=== PATIENT | female | born 1955 | race Caucasian/White ===

== ENCOUNTER 2018-06-29 10:01 | Outpatient (CLI) | payer OTHER ==
--- NOTE | 2018-07-15 16:23 | MMO ---
BILATERAL MAMMOGRAMS: 07/15/18 HISTORY: Screening mammography. COMPARISON: Multiple exams back to 04/06/14. FINDINGS: Scattered fibroglandular densities. No dominant mass or suspicious calcifications. Study was evaluate d with the assistance of computer aided detection. IMPRESSION: BIRADS 1: Negative Routine annual screening mammography (for women over age 40) POS: [facility]
== END 2018-06-29 10:02 | disposition home or self-care (01) ==
LOC: SCSMAMMO 10:01
PROVIDERS: ATTEND Family Medicine
DX: Z12.31 Encounter for screening mammogram for malignant neoplasm of breast (principal)
CPT/HCPCS: 77067

== ENCOUNTER 2021-10-23 13:00 | Observation (INO) | payer MEDICARE ==
[2021-10-23 16:10] VITALS: BMI 34.8
[2021-10-23] MEDS ORDERED: Sodium Chloride 0.9% 1,000 ML IV SCH (17:45)
[2021-10-23 18:01] LABS: #Basophils 0.1 thou/uL (0.0-0.2); #Eosinphils 0.3 thou/uL (0.0-0.7); #Monocytes 0.8 thou/uL (0.11-0.59); #Neutrophils 4.1 thou/uL (1.40-6.50); %Basophils 0.9 % (0.0-1.0); %Eosinophils 4.1 % (0.0-10.0); %Lymphocytes 27.7 % (21.0-51.0); %Monocytes 10.7 % (0.0-10.0); %Neutrophils 56.6 % (42.0-75.0); Hemoglobin 14.8 g/dL (12.0-16.0); Mean Corpuscular HGB CONC 33.1 g/dL (32.0-36.0); Mean Corpuscular Hemoglobin 32.1 pg (27.0-31.0); Mean Corpuscular Volume 97.2 fL (78.0-98.0); Mean Platelet Volume 6.9 fL (7.4-10.4); Platelet Count 261 thou/uL (130-400); RBC Distribution Width 11.8 % (11.5-14.5); Red Blood Cell (RBC) Count 4.61 mill/uL (4.20-5.40); White Blood Cell (WBC) Count 7.2 thou/uL (4.8-10.8)
[2021-10-23 18:26] LABS: Anion Gap 22 mmol/L (10-20); BUN (Urea Nitrogen) 17 mg/dL (9.8-20.1); Calc. Creatinine Clearance 96 mL/min (70-130); Calcium 9.7 mg/dL (7.8-10.44); Carbon Dioxide 18 mmol/L (23-31); Chloride 104 mmol/L (98-107); Glucose 91 mg/dL (80-115); Potassium 3.7 mmol/L (3.5-5.1); Sodium 140 mmol/L (136-145)
[2021-10-23] MEDS ORDERED: Rosuvastatin 10 MG TAB PO SCH (21:00)
[2021-10-24 00:13] LABS: SARS-CoV-2 PCR by NAA Not Detected (NotDetected)
[2021-10-24] MEDS ORDERED: Levothyroxine Sodium 88 MCG TAB PO SCH (06:00)
[2021-10-24] MEDS ORDERED: Vancomycin 1 GM/200 ML BAG ONE (06:54)
[2021-10-24] MEDS ORDERED: Gentamicin 80 MG/2 ML VIAL ONE (07:00)
[2021-10-24] MEDS ORDERED: Vancomycin HCl 500 MG VIAL ONE (07:00)
[2021-10-24] MEDS ORDERED: Clindamycin/D5W 600 mg/50 ml Premix Bag ONE (07:43)
[2021-10-24] MEDS ORDERED: Iopamidol 370 76% 50 ML VIAL FS ONE (08:50)
[2021-10-24] MEDS ORDERED: Escitalopram Oxalate 20 mg Tablet PO SCH (09:00)
[2021-10-24] MEDS ORDERED: Aspirin Chewable 81 MG TAB PO SCH (09:00)
[2021-10-24] MEDS ORDERED: Lisinopril/Hydrochlorothiazide 20 mg/12.5 mg Tablet PO SCH (09:00)
[2021-10-24] MEDS ORDERED: Levofloxacin 500 mg/D5W 100 ml Premix Bag ONE (11:17)
[2021-10-24] MEDS ORDERED: Atropine Sulfate 1 mg/1 ml Vial ONE (11:55)
[2021-10-24] MEDS ORDERED: Atropine Sulfate 1 mg/10 ml Syringe ONE (11:58)
[2021-10-24] MEDS ORDERED: Fentanyl 250 MCG/5 ML VIAL ONE (12:07)
[2021-10-24] MEDS ORDERED: Midazolam HCl 2 mg/2 ml Vial ONE (12:07)
[2021-10-24] MEDS ORDERED: Lidocaine 1% (PF) 30 ML VIAL ONE (12:19)
[2021-10-24] MEDS ORDERED: Ondansetron PF 4 MG/2 ML Vial ONE (13:04)
[2021-10-24] MEDS ORDERED: Sodium Chloride 0.9% 1,000 ML IV SCH (13:30)
[2021-10-24] MEDS ORDERED: Acetaminophen 325 MG TAB PO PRN (13:49)
[2021-10-24] MEDS ORDERED: Cephalexin 250 MG CAP PO SCH (15:00)
[2021-10-24 16:05] VITALS: BP 111/59; TEMP 97.6
== END 2021-10-24 19:04 | disposition home or self-care (01) ==
LOC: 2NO 13:03 → INTOOBSV 13:03
PROVIDERS: ADMIT Internal Medicine Cardiovascular Disease; ATTEND Internal Medicine Cardiovascular Disease
PROC: 0JH606Z Insertion of Pacemaker, Dual Chamber into Chest Subcutaneous Tissue and Fascia, Open Approach (ICD-10-PCS; principal; 2021-10-24)
PROC: 02H63JZ Insertion of Pacemaker Lead into Right Atrium, Percutaneous Approach (ICD-10-PCS; 2021-10-24)
PROC: 02HK3JZ Insertion of Pacemaker Lead into Right Ventricle, Percutaneous Approach (ICD-10-PCS; 2021-10-24)
DX: I44.2 Atrioventricular block, complete (principal); I49.3 Ventricular premature depolarization; I47.1 Supraventricular tachycardia; I10 Essential (primary) hypertension; E78.2 Mixed hyperlipidemia; F17.290 Nicotine dependence, other tobacco product, uncomplicated; E03.9 Hypothyroidism, unspecified; Z79.82 Long term (current) use of aspirin; Z79.899 Other long term (current) drug therapy; Z88.0 Allergy status to penicillin; Z91.040 Latex allergy status; Z20.822 Contact with and (suspected) exposure to COVID-19
CPT/HCPCS: 33208; 71045; 80048; 85025; 93005; C1785; C1898 ×2; U0003; U0005; 36415; 93010; 99152; 99153; G0378; J0461; J1580; J1956; J2001; J2250; J2405; J3010; J3370; J3490; J7050; Q9967